=== PATIENT | male | born 1960 ===

== ENCOUNTER 2018-06-11 14:28 | Inpatient (IN) ==
[2018-06-11 15:48] LABS: Basophils % 0.7 % (0.0-0.8); Eosinophils # 0.1 10*3/uL (0.0-0.87); Hematocrit 38.3 VOL% (42.0-52.0); Hemoglobin 13.6 GM/DL (14.0-18.0); Immature Granulocytes % 0.2 %; Immature Granulocytes Absolute 0.01 #; Lymphocytes # 1.4 10*3/uL (1.4-4.0); Lymphocytes % 32.3 % (21.2-54.2); Mean Corpuscular HGB Conc 35.5 GM/DL (32-36); Mean Corpuscular Hemoglobin 34 PG (27-34); Mean Platelet Volume 8.6 FL (9.6-12.0); Monocytes # 0.3 10*3/uL (0.11-0.8); Monocytes % 7.3 % (1.7-12.7); Neutrophils # 2.5 10*3/uL (1.4-7.4); Neutrophils % 57.5 % (38.7-73.9); Platelet Count 156 T/CUMM (130-400); Red Blood Count 3.99 MC/CUMM (3.8-5.5); Red Cell Distribution Width 12.8 % (9.3-17.3); White Blood Count 4.4 T/CUMM (4-12)
[2018-06-11 15:53] LABS: Apearance,Urine CLEAR (Clear); Bilirubin,Urine Negative (Negative); Blood, Urine Negative (Negative); Glucose,Urine (UA) Negative (Negative); Ketones,Urine Negative (Negative); Nitrite,Urine Negative (Negative); Protein,Urine Negative; RBC,Urine <1 /HPF (0-4); Squamous Epithelial Cell,Urine Occasional /HPF (0-10); Urine Color Straw (Yellow); Urine Specific Gravity 1.003 (1.001-1.035); Urine Urobilinogen < 2.0 EU/DL (0.2-1.0); WBC,Urine <1 /HPF (0-6)
[2018-06-11 15:59] LABS: Barbiturates Screen,Urine Negative (Negative); Benzodiazepines Screen,Urine Negative (Negative); Cannabinoid Screen,Urine Negative (Negative); Opiate Screen,Urine Negative (Negative); Phencyclidine Screen,Urine Negative (Negative)
[2018-06-11 18:15] LABS: Calcium 9.5 MG/DL (8.5-10.1)
[2018-06-11 18:16] LABS: Alanine Aminotransferase 21 U/L (16-61); Alkaline Phosphatase 80 U/L (45-117); Aspartate Amino Transferase 19 U/L (0-37); Bilirubin,Total 0.52 MG/DL (0.2-1.0); Total Protein 7.5 G/DL (6.4-8.3)
[2018-06-11 18:17] LABS: Albumin 3.5 G/DL (3.4-5.0); Blood Urea Nitrogen 19 MG/DL (7-18); Glucose 209 MG/DL (74-106); Sodium 143 MMOL/L (136-145)
[2018-06-11] MEDS ORDERED: LORazepam 2 MG/1 ML VIAL IV PRN (18:17)
[2018-06-11 18:18] LABS: Potassium 3.9 MMOL/L (3.5-5.1)
[2018-06-11] MEDS ORDERED: DEXTROSE 50% 25 GM/50 ML VIAL IV PRN ×2 (18:25)
[2018-06-11] MEDS ORDERED: GLUCAGON 1 MG VIAL IM PRN ×2 (18:25)
[2018-06-11] MEDS ORDERED: CLINDAMYCIN INJ 600 MG in PREMIX 1 EACH IV SCH (18:30)
[2018-06-11] MEDS ORDERED: MAGNESIUM SULF RIDER 2 GM in PREMIX 1 EACH IV PRN (18:47)
[2018-06-11] MEDS ORDERED: MAGNESIUM SULF RIDER 4 GM in PREMIX 1 EACH IV PRN (18:47)
[2018-06-11 18:51] LABS: Basophils % 0.7 % (0.0-0.8); Eosinophils # 0.1 10*3/uL (0.0-0.87); Eosinophils % 2.8 % (0.00-10.9); Hematocrit 39.7 VOL% (42.0-52.0); Immature Granulocytes % 0.2 %; Immature Granulocytes Absolute 0.01 #; Lymphocytes # 1.2 10*3/uL (1.4-4.0); Lymphocytes % 28.9 % (21.2-54.2); Mean Corpuscular HGB Conc 35.3 GM/DL (32-36); Mean Corpuscular Hemoglobin 35 PG (27-34); Mean Corpuscular Volume 97.8 FL (87-102); Mean Platelet Volume 8.6 FL (9.6-12.0); Monocytes # 0.4 10*3/uL (0.11-0.8); Monocytes % 8.2 % (1.7-12.7); Neutrophils # 2.5 10*3/uL (1.4-7.4); Neutrophils % 59.2 % (38.7-73.9); Platelet Count 145 T/CUMM (130-400); Red Blood Count 4.06 MC/CUMM (3.8-5.5); White Blood Count 4.3 T/CUMM (4-12)
[2018-06-11 19:13] LABS: Bilirubin,Total 0.8 MG/DL (0.2-1.0); Calcium 8.5 MG/DL (8.5-10.1); Osmolality,Calculated 265.1 MOS/KG (273-304); Potassium 4.1 MMOL/L (3.5-5.1); Risk Ratio 1.46; Total Protein 7.3 G/DL (6.4-8.3); VLDL CHOLESTEROL 8.8 MG/DL
[2018-06-11] MEDS: INSULIN REGULAR 100 UNIT/ML SUBCUT SCH (20:05)
[2018-06-11] MEDS: MEROPENEM 1,000 MG in SYRINGE 1 EACH IV SCH (20:41)
[2018-06-11] MEDS: HEPARIN 5,000 UNIT/1 ML VIAL SUBCUT SCH (20:42)
[2018-06-11] MEDS: ACETAMINOPHEN 325 MG TABLET PO SCH (20:43)
[2018-06-11] MEDS: PANTOPRAZOLE 40 MG TABLET PO SCH (20:43)
[2018-06-11] MEDS: chlordiazePOXIDE 25 MG CAPSULE PO SCH (20:43)
[2018-06-11] MEDS: VANCOMYCIN INJ 2,000 MG in SODIUM CHLORIDE 0.9% 500 ML IV SCH (20:48)
[2018-06-11] MEDS: THIAMINE INJ 100 MG, FOLIC ACID INJ 1 MG, MULTIVITAMIN INJ 10 ML in SODIUM CHLORIDE 0.9... IV SCH (23:26)
[2018-06-12] MEDS: chlordiazePOXIDE 25 MG CAPSULE PO SCH ×4 (04:05→20:48)
[2018-06-12] MEDS: MEROPENEM 1,000 MG in SYRINGE 1 EACH IV SCH ×3 (04:06→20:48)
[2018-06-12] MEDS: HEPARIN 5,000 UNIT/1 ML VIAL SUBCUT SCH ×3 (04:52→20:47)
[2018-06-12 06:47] LABS: Basophils % 0.7 % (0.0-0.8); Eosinophils # 0.1 10*3/uL (0.0-0.87); Eosinophils % 3.4 % (0.00-10.9); Hematocrit 39.8 VOL% (42.0-52.0); Hemoglobin 13.8 GM/DL (14.0-18.0); Immature Granulocytes % 0.5 %; Immature Granulocytes Absolute 0.02 #; Lymphocytes # 0.9 10*3/uL (1.4-4.0); Lymphocytes % 22.9 % (21.2-54.2); Mean Corpuscular HGB Conc 34.7 GM/DL (32-36); Mean Corpuscular Hemoglobin 34 PG (27-34); Mean Corpuscular Volume 99.3 FL (87-102); Mean Platelet Volume 9.1 FL (9.6-12.0); Monocytes # 0.4 10*3/uL (0.11-0.8); Monocytes % 9.6 % (1.7-12.7); Neutrophils # 2.6 10*3/uL (1.4-7.4); Neutrophils % 62.9 % (38.7-73.9); Platelet Count 141 T/CUMM (130-400); Red Blood Count 4.01 MC/CUMM (3.8-5.5); Red Cell Distribution Width 12.9 % (9.3-17.3); White Blood Count 4.1 T/CUMM (4-12)
[2018-06-12 07:05] LABS: Bilirubin,Total 1.4 MG/DL (0.2-1.0); Calcium 8.2 MG/DL (8.5-10.1); Osmolality,Calculated 268.8 MOS/KG (273-304); Potassium 3.9 MMOL/L (3.5-5.1); Total Protein 7.1 G/DL (6.4-8.3)
[2018-06-12] MEDS ORDERED: METOPROLOL TARTRATE 25 MG TABLET PO SCH (09:00)
[2018-06-12] MEDS: INSULIN REGULAR 100 UNIT/ML SUBCUT SCH ×4 (09:06→21:28)
[2018-06-12] MEDS: ACETAMINOPHEN 325 MG TABLET PO SCH ×3 (10:38→20:47)
[2018-06-12] MEDS: FOLIC ACID 1 MG TABLET PO SCH (10:39)
[2018-06-12] MEDS: PANTOPRAZOLE 40 MG TABLET PO SCH ×2 (10:39→20:48)
[2018-06-12] MEDS: VANCOMYCIN INJ 2,000 MG in SODIUM CHLORIDE 0.9% 500 ML IV SCH ×2 (10:50→21:01)
[2018-06-12] MEDS ORDERED: METOPROLOL TARTRATE 25 MG TABLET PO ONE (13:57)
[2018-06-12] MEDS ORDERED: SKIN HEALING OINT (AQUAPHOR) 50 GM TUBE TOP PRN (14:27)
[2018-06-12] MEDS ORDERED: LORazepam 2 MG/1 ML VIAL IV ONE (15:36)
[2018-06-12] MEDS: ASPIRIN EC 81 MG TABLET PO SCH (17:54)
[2018-06-12] MEDS: METOPROLOL TARTRATE 25 MG TABLET PO SCH (20:48)
[2018-06-12] MEDS: THIAMINE INJ 100 MG, FOLIC ACID INJ 1 MG, MULTIVITAMIN INJ 10 ML in SODIUM CHLORIDE 0.9... IV SCH (23:30)
[2018-06-13] MEDS: chlordiazePOXIDE 25 MG CAPSULE PO SCH ×4 (03:04→20:40)
[2018-06-13] MEDS: MEROPENEM 1,000 MG in SYRINGE 1 EACH IV SCH ×3 (03:05→20:38)
[2018-06-13] MEDS: HEPARIN 5,000 UNIT/1 ML VIAL SUBCUT SCH ×3 (05:08→20:44)
[2018-06-13 05:16] LABS: Basophils % 0.8 % (0.0-0.8); Eosinophils # 0.3 10*3/uL (0.0-0.87); Eosinophils % 6.6 % (0.00-10.9); Hematocrit 39.9 VOL% (42.0-52.0); Hemoglobin 13.5 GM/DL (14.0-18.0); Immature Granulocytes % 0.3 %; Immature Granulocytes Absolute 0.01 #; Lymphocytes # 1.1 10*3/uL (1.4-4.0); Lymphocytes % 26.7 % (21.2-54.2); Mean Corpuscular HGB Conc 33.8 GM/DL (32-36); Mean Corpuscular Hemoglobin 34 PG (27-34); Mean Corpuscular Volume 100.8 FL (87-102); Mean Platelet Volume 9.3 FL (9.6-12.0); Monocytes # 0.5 10*3/uL (0.11-0.8); Monocytes % 12.5 % (1.7-12.7); Neutrophils # 2.1 10*3/uL (1.4-7.4); Neutrophils % 53.1 % (38.7-73.9); Platelet Count 114 T/CUMM (130-400); Red Blood Count 3.96 MC/CUMM (3.8-5.5); Red Cell Distribution Width 13.2 % (9.3-17.3); White Blood Count 3.9 T/CUMM (4-12)
[2018-06-13 06:00] LABS: Albumin 2.6 G/DL (3.4-5.0); Bilirubin,Total 1.5 MG/DL (0.2-1.0); Calcium 8.3 MG/DL (8.5-10.1); Osmolality,Calculated 276.4 MOS/KG (273-304); Potassium 3.6 MMOL/L (3.5-5.1); Total Protein 6.6 G/DL (6.4-8.3)
[2018-06-13] MEDS ORDERED: diphenhydrAMINE 50 MG/1 ML VIAL IV ONE (07:35)
[2018-06-13] MEDS ORDERED: DIAZEPAM 10 MG/2 ML SYRINGE IV ONE (07:35)
[2018-06-13] MEDS: INSULIN REGULAR 100 UNIT/ML SUBCUT SCH ×4 (08:00→20:40)
[2018-06-13] MEDS: VANCOMYCIN INJ 2,000 MG in SODIUM CHLORIDE 0.9% 500 ML IV SCH ×2 (10:04→22:48)
[2018-06-13] MEDS: PANTOPRAZOLE 40 MG TABLET PO SCH ×2 (10:05→20:40)
[2018-06-13] MEDS: ASPIRIN EC 81 MG TABLET PO SCH (10:05)
[2018-06-13] MEDS: FOLIC ACID 1 MG TABLET PO SCH (10:05)
[2018-06-13] MEDS: CLOPIDOGREL 75 MG TABLET PO SCH (10:05)
[2018-06-13] MEDS: ACETAMINOPHEN 325 MG TABLET PO SCH ×3 (10:05→20:40)
[2018-06-13] MEDS: METOPROLOL TARTRATE 25 MG TABLET PO SCH ×2 (10:06→20:40)
[2018-06-13] MEDS: THIAMINE INJ 100 MG, FOLIC ACID INJ 1 MG, MULTIVITAMIN INJ 10 ML in SODIUM CHLORIDE 0.9... IV SCH (20:49)
[2018-06-14] MEDS: chlordiazePOXIDE 25 MG CAPSULE PO SCH ×4 (02:40→23:44)
[2018-06-14] MEDS: VANCOMYCIN INJ 2,000 MG in SODIUM CHLORIDE 0.9% 500 ML IV SCH ×2 (02:40→21:18)
[2018-06-14] MEDS: MEROPENEM 1,000 MG in SYRINGE 1 EACH IV SCH ×3 (04:47→21:12)
[2018-06-14 04:50] LABS: Albumin 2.6 G/DL (3.4-5.0); Bilirubin,Total 1.1 MG/DL (0.2-1.0); Calcium 8.4 MG/DL (8.5-10.1); Osmolality,Calculated 273.5 MOS/KG (273-304); Potassium 3.4 MMOL/L (3.5-5.1); Total Protein 6.8 G/DL (6.4-8.3)
[2018-06-14 05:17] LABS: Basophils % 0.5 % (0.0-0.8); Eosinophils # 0.3 10*3/uL (0.0-0.87); Eosinophils % 8.5 % (0.00-10.9); Hematocrit 38.1 VOL% (42.0-52.0); Hemoglobin 13.4 GM/DL (14.0-18.0); Immature Granulocytes % 0.2 %; Immature Granulocytes Absolute 0.01 #; Lymphocytes # 1.6 10*3/uL (1.4-4.0); Lymphocytes % 40.1 % (21.2-54.2); Mean Corpuscular HGB Conc 35.2 GM/DL (32-36); Mean Corpuscular Hemoglobin 35 PG (27-34); Mean Corpuscular Volume 99.2 FL (87-102); Mean Platelet Volume 9.7 FL (9.6-12.0); Monocytes # 0.4 10*3/uL (0.11-0.8); Neutrophils # 1.6 10*3/uL (1.4-7.4); Neutrophils % 40.7 % (38.7-73.9); Platelet Count 114 T/CUMM (130-400); Red Blood Count 3.84 MC/CUMM (3.8-5.5); Red Cell Distribution Width 13.2 % (9.3-17.3)
[2018-06-14] MEDS: HEPARIN 5,000 UNIT/1 ML VIAL SUBCUT SCH ×3 (05:42→21:10)
[2018-06-14] MEDS: POTASSIUM CHLORIDE RIDER 10 MEQ in PREMIX 1 EACH IV PRN ×3 (06:31→15:43)
[2018-06-14] MEDS: INSULIN REGULAR 100 UNIT/ML SUBCUT SCH ×4 (08:29→21:09)
[2018-06-14] MEDS: METOPROLOL TARTRATE 25 MG TABLET PO SCH ×2 (09:19→21:08)
[2018-06-14] MEDS: CLOPIDOGREL 75 MG TABLET PO SCH (09:19)
[2018-06-14] MEDS: ACETAMINOPHEN 325 MG TABLET PO SCH ×3 (09:19→21:08)
[2018-06-14] MEDS: PANTOPRAZOLE 40 MG TABLET PO SCH ×2 (09:19→21:08)
[2018-06-14] MEDS: ASPIRIN EC 81 MG TABLET PO SCH (09:19)
[2018-06-14] MEDS: FOLIC ACID 1 MG TABLET PO SCH (09:19)
[2018-06-15] MEDS: THIAMINE INJ 100 MG, FOLIC ACID INJ 1 MG, MULTIVITAMIN INJ 10 ML in SODIUM CHLORIDE 0.9... IV SCH ×2 (02:59→21:29)
[2018-06-15] MEDS: MEROPENEM 1,000 MG in SYRINGE 1 EACH IV SCH ×3 (05:00→21:20)
[2018-06-15] MEDS: HEPARIN 5,000 UNIT/1 ML VIAL SUBCUT SCH ×3 (05:03→21:22)
[2018-06-15] MEDS: chlordiazePOXIDE 25 MG CAPSULE PO SCH ×4 (05:04→21:18)
[2018-06-15 05:41] LABS: Basophils % 0.4 % (0.0-0.8); Eosinophils # 0.4 10*3/uL (0.0-0.87); Eosinophils % 8.6 % (0.00-10.9); Hematocrit 38.6 VOL% (42.0-52.0); Hemoglobin 13.1 GM/DL (14.0-18.0); Immature Granulocytes % 0.2 %; Immature Granulocytes Absolute 0.01 #; Lymphocytes # 1.4 10*3/uL (1.4-4.0); Lymphocytes % 31.5 % (21.2-54.2); Mean Corpuscular HGB Conc 33.9 GM/DL (32-36); Mean Corpuscular Hemoglobin 34 PG (27-34); Mean Platelet Volume 9.4 FL (9.6-12.0); Monocytes # 0.5 10*3/uL (0.11-0.8); Monocytes % 10.6 % (1.7-12.7); Neutrophils # 2.2 10*3/uL (1.4-7.4); Neutrophils % 48.7 % (38.7-73.9); Platelet Count 107 T/CUMM (130-400); Red Cell Distribution Width 13.1 % (9.3-17.3); White Blood Count 4.5 T/CUMM (4-12)
[2018-06-15 06:06] LABS: Albumin 2.9 G/DL (3.4-5.0); Bilirubin,Total 0.8 MG/DL (0.2-1.0); Calcium 8.4 MG/DL (8.5-10.1); Osmolality,Calculated 280.3 MOS/KG (273-304); Potassium 3.4 MMOL/L (3.5-5.1); Total Protein 6.6 G/DL (6.4-8.3)
[2018-06-15] MEDS: INSULIN REGULAR 100 UNIT/ML SUBCUT SCH ×4 (07:50→20:43)
[2018-06-15] MEDS: CLOPIDOGREL 75 MG TABLET PO SCH (08:56)
[2018-06-15] MEDS: ASPIRIN EC 81 MG TABLET PO SCH (08:56)
[2018-06-15] MEDS: ACETAMINOPHEN 325 MG TABLET PO SCH ×3 (08:56→21:18)
[2018-06-15] MEDS: METOPROLOL TARTRATE 25 MG TABLET PO SCH ×2 (08:56→21:18)
[2018-06-15] MEDS: PANTOPRAZOLE 40 MG TABLET PO SCH ×2 (08:56→21:18)
[2018-06-15] MEDS: FOLIC ACID 1 MG TABLET PO SCH (08:57)
[2018-06-15] MEDS: VANCOMYCIN INJ 2,000 MG in SODIUM CHLORIDE 0.9% 500 ML IV SCH (15:34)
[2018-06-16] MEDS: chlordiazePOXIDE 25 MG CAPSULE PO SCH ×4 (03:31→21:03)
[2018-06-16] MEDS: MEROPENEM 1,000 MG in SYRINGE 1 EACH IV SCH ×3 (03:32→21:01)
[2018-06-16] MEDS: HEPARIN 5,000 UNIT/1 ML VIAL SUBCUT SCH ×3 (05:28→21:03)
[2018-06-16] MEDS: INSULIN REGULAR 100 UNIT/ML SUBCUT SCH ×4 (09:25→21:04)
[2018-06-16] MEDS: VANCOMYCIN INJ 2,000 MG in SODIUM CHLORIDE 0.9% 500 ML IV SCH (10:52)
[2018-06-16] MEDS: FOLIC ACID 1 MG TABLET PO SCH (10:53)
[2018-06-16] MEDS: PANTOPRAZOLE 40 MG TABLET PO SCH ×2 (10:53→21:03)
[2018-06-16] MEDS: ACETAMINOPHEN 325 MG TABLET PO SCH ×3 (10:53→21:15)
[2018-06-16] MEDS: ASPIRIN EC 81 MG TABLET PO SCH (10:54)
[2018-06-16] MEDS: METOPROLOL TARTRATE 25 MG TABLET PO SCH ×2 (10:54→21:03)
[2018-06-16] MEDS: CLOPIDOGREL 75 MG TABLET PO SCH (10:54)
[2018-06-16] MEDS: THIAMINE INJ 100 MG, FOLIC ACID INJ 1 MG, MULTIVITAMIN INJ 10 ML in SODIUM CHLORIDE 0.9... IV SCH (21:04)
[2018-06-17] MEDS: chlordiazePOXIDE 25 MG CAPSULE PO SCH ×3 (02:58→16:20)
[2018-06-17] MEDS: VANCOMYCIN INJ 2,000 MG in SODIUM CHLORIDE 0.9% 500 ML IV SCH (02:58)
[2018-06-17] MEDS: MEROPENEM 1,000 MG in SYRINGE 1 EACH IV SCH (04:50)
[2018-06-17] MEDS: HEPARIN 5,000 UNIT/1 ML VIAL SUBCUT SCH ×2 (04:50→13:35)
[2018-06-17] MEDS: INSULIN REGULAR 100 UNIT/ML SUBCUT SCH ×2 (07:14→11:56)
[2018-06-17] MEDS: PANTOPRAZOLE 40 MG TABLET PO SCH (09:19)
[2018-06-17] MEDS: FOLIC ACID 1 MG TABLET PO SCH (09:19)
[2018-06-17] MEDS: ACETAMINOPHEN 325 MG TABLET PO SCH ×2 (09:19→16:20)
[2018-06-17] MEDS: ASPIRIN EC 81 MG TABLET PO SCH (09:20)
[2018-06-17] MEDS: METOPROLOL TARTRATE 25 MG TABLET PO SCH (09:20)
[2018-06-17] MEDS: CLOPIDOGREL 75 MG TABLET PO SCH (09:20)
[2018-06-17 16:28] VITALS: BP 126/79
== END 2018-06-17 16:45 | DRG 603 ==
LOC: EDBD → EDUNIT# → N.ED 14:28 → SUATTDRO 18:08 → N.EDINP 18:08 → N.3E 19:00
PROVIDERS: ADMIT Internal Medicine; ATTEND Internal Medicine